=== PATIENT | male | born 1960 | race Caucasian/White ===

== ENCOUNTER 2023-10-21 00:08 | Emergency (ER) | payer MEDICAID ==
[~2023-10-21] VITALS: Ht 162.6 cm; Wt 81.0 kg
[2023-10-21 00:29] VITALS: O2SAT 97
[2023-10-21] MEDS ORDERED: BENZ100C86 MT (04:50)
[2023-10-21] MEDS ORDERED: PRED10TA MT (04:50)
[2023-10-21 05:00] VITALS: BP 120/71; PULSE 88; RESP 18; TEMP 98.1
== END 2023-10-21 05:20 | disposition home or self-care (01) ==
LOC: ER 00:08
DX: J40 Bronchitis, not specified as acute or chronic (principal); J44.9 Chronic obstructive pulmonary disease, unspecified; E78.00 Pure hypercholesterolemia, unspecified; I10 Essential (primary) hypertension; Z90.49 Acquired absence of other specified parts of digestive tract
CPT/HCPCS: 71045; 99283; Z7610 ×2

== ENCOUNTER 2023-11-25 12:12 | Emergency (ER) | payer MEDICAID, OTHER ==
[~2023-11-25] VITALS: Ht 167.6 cm; Wt 78.0 kg
[~2023-11-25 12:12] MED LIST: BENZ100C86 MT; PRED10TA MT
[2023-11-25 12:20] VITALS: TEMP 98.7; O2SAT 99
[2023-11-25 12:41] LABS: BASOPHILS % 0.6 % (0.0-2.0); EOSINOPHILS % 3.2 % (0.0-5.0); HEMATOCRIT. 43.9 % (42.0-52.0); HEMOGLOBIN. 14.9 g/dL (14.0-18.0); LYMPHOCYTES % 28.7 % (20.0-50.0); MEAN CORPUSCULAR HEMOGLOBIN 31.1 pg (28.0-32.0); MEAN CORPUSCULAR HGB CONC 33.8 g/dL (31.0-37.0); MEAN CORPUSCULAR VOLUME 92.1 fL (80.0-94.0); MEAN PLATELET VOLUME 8.5 fl (7.4-10.4); MONOCYTES % 8.6 % (2.0-8.0); NEUTROPHILS % 58.9 % (40.0-76.0); PLATELET 251 x1000/uL (130-400); RED BLOOD CELL COUNT 4.77 mill/uL (4.7-6.1); RED CELL DISTRIBUTION WIDTH 14.7 % (11.6-14.6); WHITE BLOOD COUNT 5.9 x1000/uL (4.5-11.0)
[2023-11-25 12:57] LABS: TROPONIN I HIGH SENSITIVITY 15 ng/L (3.0-53)
[2023-11-25 12:58] LABS: ALANINE AMINOTRANSFERASE 53 IU/L (10-49); ALBUMIN 4.6 g/dL (3.2-4.8); ASPARTATE AMINOTRANSFERASE 37 IU/L (<34); BILIRUBIN TOTAL 0.5 mg/dL (0.1-1.0); CALCIUM 8.6 mg/dL (8.7-10.4); CARBON DIOXIDE 23 mEq/L (21-32); CHLORIDE 107 mEq/L (98-107); CREATININE 0.8 mg/dL (0.6-1.3); GLUCOSE 97 mg/dL (70-105); PROTEIN TOTAL 8.1 g/dL (6.0-8.3); SODIUM 137 mEq/L (136-145); UREA NITROGEN BLOOD 9 mg/dL (9-23)
[2023-11-25 13:12] LABS: INR 0.9; PROTHROMBIN TIME 10.3 sec (9.6-11.0)
[2023-11-25 13:15] VITALS: BP 142/87; PULSE 71; RESP 16
[2023-11-25 15:00] LABS: TROPONIN I HIGH SENSITIVITY 14 ng/L (3.0-53)
== END 2023-11-25 17:17 | disposition home or self-care (01) ==
LOC: ER 12:12
DX: R10.84 Generalized abdominal pain (principal); I10 Essential (primary) hypertension; E11.9 Type 2 diabetes mellitus without complications; J45.909 Unspecified asthma, uncomplicated; Z98.890 Other specified postprocedural states; Z90.49 Acquired absence of other specified parts of digestive tract
CPT/HCPCS: 36415; 71045; 74176; 80053; 84484; 85025; 93005; 99284